=== PATIENT | female | born 1935 | race Caucasian/White ===

== ENCOUNTER 2016-11-27 13:02 | Inpatient (IN) | payer OTHER, BC ==
[~2016-11-27] VITALS: Ht 167.6 cm; Wt 88.2 kg
[~2016-11-27 13:02] MED LIST: AMLODIPINE BESY10 MG PO; ASPIRIN EC325 MG PO; CALCIUM 500 MG1 EACH PO; CALCIUM 600 +1 EAC9 PO; CELECOXIB200 MG PO; DIOVAN160 MG PO; DIOVAN320 MG PO; FLAGYL500 MG PO; FLAX OIL1000 MG PO; HYDROCODON-ACE1 EAC7 PO; IRON325 M1 PO; LOPRESSOR25 MG PO; LOPRESSOR50 MG PO; METRONIDAZOLE500 MG PO; NORCO 5/3251 TABLET PO; ONE DAILY FOR1 EAC1 PO; SENNA PLUS TAB1 EACH PO; TOPROL XL50 MG PO
[2016-11-27 13:32] LABS: MEAN PLAT.VOLUME 11.1 uM^3 (9.5-12.4); PLATELET COUNT 153 K/uL (156-360)
[2016-11-27 13:45] LABS: CHLORIDE 106 mEq/L (99-109); HEMATOCRIT 30.2 % (36.0-46.0); MCH 35.7 PG (29.0-34.0); MCHC 32.8 G/DL (30.0-36.0); POTASSIUM 4.9 mEq/L (3.7-5.4); RBC DIS.WIDTH-CV 17.6 % (11.8-14.6); RED BLOOD COUNT 2.77 M/uL (3.80-5.20); SODIUM 141 mEq/L (136-147)
[2016-11-27 13:46] LABS: WHITE BLOOD COUNT 60.8 K/uL (4.1-10.2)
[2016-11-27 13:47] LABS: GLUCOSE 140 mg/dL (70-99)
[2016-11-27 13:48] LABS: ANION GAP 11 MEQ/L (2-14)
[2016-11-27 13:51] LABS: GFR ESTIMATE (CALCULATED) 42 mL/min/
[2016-11-27 13:52] LABS: TROP-I INTERPRETATION NEGATIVE; TROPONIN-I < 0.01 ng/mL (0.0-0.30); UREA NITROGEN (BUN) 23 mg/dL (9-23)
[2016-11-27] MEDS ORDERED: NORVASC10 MG PO (16:26)
[2016-11-27 17:05] LABS: SAMPLE HEMOLYSIS CHECK 0; SAMPLE ICTERIC CHECK 0; SAMPLE LIPEMIA CHECK 0
[2016-11-27 17:10] LABS: LACTATE DEHYDROGENASE 429 IU/L (20-246)
[2016-11-27 17:33] LABS: ABS NEUTROPHIL COUNT 7.5; ANISOCYTOSIS 2+; ATYPICAL LYMPHOCYTE 11.9 %; BAND NEUTROPHILS 1.4 % (0-8.0); BASOPHILS 0.5 %; EOSINOPHIL ABS CT 0.3; EOSINOPHILS 0.5 % (0-5.0); INSTRUMENT ABS NEUTROPHIL CT 4.2 K/uL; LYMPHOCYTES 64.2 % (15.0-45.0); MACROCYTES 1+; MICROCYTOSIS 1+; OVALOCYTES 1+; PLAT.SUFFICIENCY ADEQUATE; POLYCHROMASIA 1+; SCHISTOCYTES 1+; SMUDGE CELLS 33.9; TEAR DROP CELLS 1+
[2016-11-27 23:18] LABS: D-DIMER ELISA 0.21 mg/L FEU (< 0.57); INTER. NORMALIZED RATIO 1.2; PROTHROMBIN TIME 11.9 (9.2-11.2); PTT 22.8 (25-32)
[2016-11-28 00:36] VITALS: BP 148/66
[2016-11-28 01:26] LABS: TROP-I INTERPRETATION NEGATIVE; TROPONIN-I < 0.01 ng/mL (0.0-0.30)
[2016-11-28 06:29] LABS: MEAN PLAT.VOLUME 11.2 uM^3 (9.5-12.4); PLATELET COUNT 113 K/uL (156-360)
[2016-11-28 06:37] LABS: HEMATOCRIT 27.8 % (36.0-46.0); MCH 36.1 PG (29.0-34.0); MCHC 33.1 G/DL (30.0-36.0); NRBC (%) 0.1 /100 WBC (0-0); RBC DIS.WIDTH-CV 18.2 % (11.8-14.6); RBC DIS.WIDTH-SD 71.4 % (39-53); RED BLOOD COUNT 2.55 M/uL (3.80-5.20)
[2016-11-28 06:41] LABS: WHITE BLOOD COUNT 49.1 K/uL (4.1-10.2)
[2016-11-28 06:53] LABS: ANION GAP 8 MEQ/L (2-14); CHLORIDE 107 MEQ/L (99-109); GFR ESTIMATE (CALCULATED) 51 mL/min/; SAMPLE HEMOLYSIS CHECK 0; SAMPLE ICTERIC CHECK 0; SAMPLE LIPEMIA CHECK 0; SODIUM 141 MEQ/L (136-147); UREA NITROGEN (BUN) 18 mg/dL (9-23)
[2016-11-28 06:54] LABS: GLUCOSE 102 mg/dL (70-99)
[2016-11-28 06:56] LABS: TROP-I INTERPRETATION NEGATIVE; TROPONIN-I 0.01 ng/mL (0.0-0.30)
[2016-11-28 07:49] VITALS: BP 138/63
[2016-11-28 08:39] LABS: ALKALINE PHOSPHATASE 72 IU/L (3-129); DIRECT BILIRUBIN 0.3 mg/dL (0.0-0.3); TOTAL BILIRUBIN 1.2 MG/DL (0.0-1.0)
[2016-11-28 10:42] LABS: ADD MIUA? YES; BILIRUBIN NEGATIVE; BLOOD SMALL; COLOR YELLOW ((YELLOW)); GLUCOSE (STRIP) NEGATIVE; KETONES NEGATIVE; LEUKOCYTES LARGE; NITRITE NEGATIVE; PROTEIN (STRIP) NEGATIVE; SPECIFIC GRAVITY 1.009 (1.000-1.030); UROBILINOGEN 0.2 MG/DL (0.2-1.0)
[2016-11-28 10:59] LABS: BACTERIA 2+ /HPF; EPITHELIAL CELLS RARE /HPF; MUCUS TRACE /LPF; RED BLOOD CELLS 0-5 /HPF (0-5); UCUL ADDED? YES; WHITE BLOOD CELLS TNTC /HPF (0-5); WHITE BLOOD CELLS CLUMP FEW /HPF (0-5)
[2016-11-28 11:17] VITALS: BP 137/64
[2016-11-28 14:09] LABS: AHBS INDEX 2.51; HBSG INDEX 0.24; HEPATITIS B SURFACE ANTIBODY Nonreactive
[2016-11-28 15:34] VITALS: BP 136/63
[2016-11-28 19:56] VITALS: BP 155/69
[2016-11-28 23:11] VITALS: BP 120/59
[2016-11-29 03:57] VITALS: BP 133/62
[2016-11-29 06:30] VITALS: BP 137/69
[2016-11-29 06:49] LABS: MCH 36.1 PG (29.0-34.0); MCHC 32.9 G/DL (30.0-36.0); MCV 109.8 FL (83-99); MEAN PLAT.VOLUME 11.3 uM^3 (9.5-12.4); NRBC (%) 0.1 /100 WBC (0-0); PLATELET COUNT 116 K/uL (156-360); RBC DIS.WIDTH-CV 17.9 % (11.8-14.6); RBC DIS.WIDTH-SD 70.4 % (39-53); RED BLOOD COUNT 2.55 M/uL (3.80-5.20)
[2016-11-29 06:52] LABS: WHITE BLOOD COUNT 50.8 K/uL (4.1-10.2)
[2016-11-29 07:06] LABS: ANION GAP 8 MEQ/L (2-14); CHLORIDE 106 MEQ/L (99-109); GFR ESTIMATE (CALCULATED) 51 mL/min/; GLUCOSE 97 mg/dL (70-99); POTASSIUM 4.1 MEQ/L (3.7-5.4); SAMPLE HEMOLYSIS CHECK 0; SAMPLE ICTERIC CHECK 0; SAMPLE LIPEMIA CHECK 0; SODIUM 141 MEQ/L (136-147); UREA NITROGEN (BUN) 18 mg/dL (9-23)
[2016-11-29 07:22] LABS: ABS NEUTROPHIL COUNT 8.8; ATYPICAL LYMPHOCYTE 2.8 %; BAND NEUTROPHILS 0.9 % (0-8.0); EOSINOPHIL ABS CT 0.5; EOSINOPHILS 0.9 % (0-5.0); INSTRUMENT ABS NEUTROPHIL CT 3.3 K/uL; LYMPHOCYTES 77.1 % (15.0-45.0); METAMYELOCYTES 0.9 %; SEG.NEUTROPHILS 16.5 % (46.0-76.0); SMUDGE CELLS 81.7
[2016-11-29 07:31] LABS: ANISOCYTOSIS 1+; MACROCYTES 1+; PLAT.SUFFICIENCY DECREASED
[2016-11-29 11:28] VITALS: BP 127/69
[2016-11-29 16:14] VITALS: BP 136/66
[2016-11-29 19:17] VITALS: BP 133/63
[2016-11-29 23:34] VITALS: BP 125/60
[2016-11-30 03:53] VITALS: BP 133/63
[2016-11-30 07:29] VITALS: BP 130/60
[2016-11-30 07:37] LABS: HEMATOCRIT 29.1 % (36.0-46.0); MCHC 32.6 G/DL (30.0-36.0); MCV 110.2 FL (83-99); NRBC (%) 0.1 /100 WBC (0-0); RBC DIS.WIDTH-CV 18.1 % (11.8-14.6); RBC DIS.WIDTH-SD 72.4 % (39-53); RED BLOOD COUNT 2.64 M/uL (3.80-5.20)
[2016-11-30 07:40] LABS: ANION GAP 7 MEQ/L (2-14); CHLORIDE 108 MEQ/L (99-109); GFR ESTIMATE (CALCULATED) 46 mL/min/; GLUCOSE 100 mg/dL (70-99); SAMPLE HEMOLYSIS CHECK 2; SAMPLE ICTERIC CHECK 0; SAMPLE LIPEMIA CHECK 0; SODIUM 143 MEQ/L (136-147); UREA NITROGEN (BUN) 16 mg/dL (9-23)
[2016-11-30 08:32] LABS: ABS NEUTROPHIL COUNT 7.4; ATYPICAL LYMPHOCYTE 1.9 %; EOSINOPHIL ABS CT 0; INSTRUMENT ABS NEUTROPHIL CT 3.2 K/uL; LYMPHOCYTES 74.5 % (15.0-45.0); MEAN PLAT.VOLUME 11.2 uM^3 (9.5-12.4); METAMYELOCYTES 0.9 %; NUCLEATED RBC'S 1.9; PLATELET COUNT 121 K/uL (156-360); SMUDGE CELLS 91.5
[2016-11-30 09:07] LABS: POTASSIUM 4.1 MEQ/L (3.7-5.4)
[2016-11-30 11:02] VITALS: BP 138/65
[2016-11-30 11:32] LABS: ANISOCYTOSIS 2+; MACROCYTES 1+; MICROCYTOSIS 1+; PLAT.SUFFICIENCY DECREASED
[2016-11-30] MEDS ORDERED: BACTRIM,SEPT1 TABLET PO (13:55)
[2016-11-30] MEDS ORDERED: CYANOCOBAL1000 MCG/2 PO (13:56)
[2016-12-01 11:26] LABS: POC NON-PRINT COM 1 ND
[2016-12-01 11:27] LABS: POC NON-PRINT COM 1 ND
== END 2016-11-30 16:10 | disposition home or self-care (01) | DRG 841 ==
LOC: EME 13:02 → EDOF 21:48 → 2EAST 21:48
PROVIDERS: Anesthesiology; Hospitalist; Internal Medicine
DX: C91.90 Lymphoid leukemia, unspecified not having achieved remission (principal); N39.0 Urinary tract infection, site not specified; E53.8 Deficiency of other specified B group vitamins; I10 Essential (primary) hypertension; R53.83 Other fatigue; D63.0 Anemia in neoplastic disease; D53.9 Nutritional anemia, unspecified; R73.9 Hyperglycemia, unspecified
CPT/HCPCS: 71020; 71260; 74177; 80048; 80076; 81003; 82272; 82607; 82746; 83615; 84443; 84484; 84550; 84999; 85007; 85025; 85027; 85379; 85610; 85730; 86706; 86860; 86870; 86880; 87040; 87077; 87086; 87186; 87340; 93005; 93306; 99281; 99285; J1650; J3420; J7030

== ENCOUNTER 2016-12-28 20:47 | Inpatient (IN) | payer OTHER, BC ==
[~2016-12-28] VITALS: Ht 167.6 cm; Wt 89.8 kg
[~2016-12-28 20:47] MED LIST changes: +BACTRIM,SEPT1 TABLET PO; +CYANOCOBAL1000 MCG/2 PO; +NORVASC10 MG PO
[2016-12-28 22:24] LABS: CHLORIDE 106 mEq/L (99-109); HEMATOCRIT 21.9 % (36.0-46.0); MCH 37.8 PG (29.0-34.0); MCHC 33.8 G/DL (30.0-36.0); MCV 111.7 FL (83-99); NRBC (%) 0.1 /100 WBC (0-0); POTASSIUM 4.3 mEq/L (3.7-5.4); RBC DIS.WIDTH-CV 18.6 % (11.8-14.6); RBC DIS.WIDTH-SD 70.8 % (39-53); SODIUM 139 mEq/L (136-147)
[2016-12-28 22:26] LABS: GLUCOSE 130 mg/dL (70-99); PLATELET COUNT 172 K/uL (156-360); RED BLOOD COUNT 1.96 M/uL (3.80-5.20); WHITE BLOOD COUNT 104.6 K/uL (4.1-10.2)
[2016-12-28 22:27] LABS: ANION GAP 10 MEQ/L (2-14)
[2016-12-28 22:30] LABS: GFR ESTIMATE (CALCULATED) 36 mL/min/; UREA NITROGEN (BUN) 28 mg/dL (9-23)
[2016-12-28 23:32] LABS: HEMATOLOGY COMMENT 1 SMEAR COMPATIBLE; PLAT.SUFFICIENCY ADEQUATE
[2016-12-29 00:01] LABS: INTER. NORMALIZED RATIO 1.1; PROTHROMBIN TIME 11.3 (9.2-11.2); PTT 25.3 (25-32)
[2016-12-29 00:05] LABS: TOTAL BILIRUBIN 3.5 mg/dL (0.0-1.0)
[2016-12-29 00:06] LABS: ALKALINE PHOSPHATASE 85 IU/L (3-129)
[2016-12-29 00:09] LABS: DIRECT BILIRUBIN 0.9 mg/dL (0.0-0.3)
[2016-12-29 00:10] LABS: LIPASE 26 U/L (1.0-51.0)
[2016-12-29 00:15] LABS: TROP-I INTERPRETATION NEGATIVE; TROPONIN-I < 0.01 ng/mL (0.0-0.30)
[2016-12-29 00:39] LABS: CREATINE KINASE 28 IU/L (1-294)
[2016-12-29 00:47] LABS: ADD MIUA? YES; BILIRUBIN NEGATIVE; BLOOD NEGATIVE; COLOR YELLOW ((YELLOW)); GLUCOSE (STRIP) NEGATIVE; KETONES NEGATIVE; LEUKOCYTES MODERATE; NITRITE NEGATIVE; PROTEIN (STRIP) NEGATIVE; SPECIFIC GRAVITY 1.019 (1.000-1.030)
[2016-12-29 00:47] LABS: INFLUENZA A VIRAL ANTIGEN NEGATIVE; INFLUENZA B VIRAL ANTIGEN NEGATIVE
[2016-12-29] MEDS ORDERED: VITAMIN B-12500 MC5 SL (00:49)
[2016-12-29 01:32] LABS: BACTERIA NONE SEEN /HPF; EPITHELIAL CELLS RARE /HPF; MUCUS TRACE /LPF; UCUL ADDED? NO; WHITE BLOOD CELLS 20-30 /HPF (0-5)
[2016-12-29 04:57] VITALS: BP 134/64
[2016-12-29 05:33] VITALS: BP 134/64
[2016-12-29 06:44] LABS: HEMATOCRIT 17.1 % (36.0-46.0); MCH 38.9 PG (29.0-34.0); MCHC 33.9 G/DL (30.0-36.0); MCV 114.8 FL (83-99); NRBC (%) 0.1 /100 WBC (0-0); RBC DIS.WIDTH-SD 75.4 % (39-53)
[2016-12-29 06:45] LABS: RED BLOOD COUNT 1.49 M/uL (3.80-5.20)
[2016-12-29 07:24] VITALS: BP 111/58
[2016-12-29 08:12] VITALS: BP 136/65
[2016-12-29 08:38] LABS: ABS NEUTROPHIL COUNT 9.6; ANISOCYTOSIS 2+; BAND NEUTROPHILS 0.9 % (0-8.0); BASOPHILS 0.5 %; EOSINOPHIL ABS CT 0; INSTRUMENT ABS NEUTROPHIL CT 4.7 K/uL; LYMPHOCYTES 82.8 % (15.0-45.0); MACROCYTES 1+; MEAN PLAT.VOLUME 10.8 uM^3 (9.5-12.4); METAMYELOCYTES 0.5 %; MICROCYTOSIS 1+; MYELOCYTES 1.4 %; PLAT.SUFFICIENCY DECREASED; PLATELET COUNT 136 K/uL (156-360); POLYCHROMASIA 1+; SMUDGE CELLS 73.7
[2016-12-29 15:05] VITALS: BP 113/61
[2016-12-29 22:52] VITALS: BP 123/56
[2016-12-30] VITALS (11 sets, daily range): BP systolic 108–181; BP diastolic 52–82
[2016-12-30 02:31] LABS: TROP-I INTERPRETATION NEGATIVE; TROPONIN-I < 0.01 ng/mL (0.0-0.30)
[2016-12-30 07:34] LABS: HEMATOCRIT 18.4 % (36.0-46.0); MCH 38.5 PG (29.0-34.0); MCHC 33.7 G/DL (30.0-36.0); MCV 114.3 FL (83-99); MEAN PLAT.VOLUME 10.8 uM^3 (9.5-12.4); NRBC (%) 0.1 /100 WBC (0-0); RBC DIS.WIDTH-CV 19.7 % (11.8-14.6); RBC DIS.WIDTH-SD 74.7 % (39-53); RED BLOOD COUNT 1.61 M/uL (3.80-5.20); WHITE BLOOD COUNT 110.2 K/uL (4.1-10.2)
[2016-12-30 07:35] LABS: PLATELET COUNT 179 K/uL (156-360)
[2016-12-30 07:59] LABS: ALKALINE PHOSPHATASE 88 IU/L (3-129); ANION GAP 10 MEQ/L (2-14); CHLORIDE 107 MEQ/L (99-109); GFR ESTIMATE (CALCULATED) 51 mL/min/; GLUCOSE 131 mg/dL (70-99); POTASSIUM 4.5 MEQ/L (3.7-5.4); SAMPLE HEMOLYSIS CHECK 0; SAMPLE ICTERIC CHECK 1; SAMPLE LIPEMIA CHECK 0; SODIUM 141 MEQ/L (136-147); TOTAL BILIRUBIN 3.4 MG/DL (0.0-1.0); UREA NITROGEN (BUN) 26 mg/dL (9-23)
[2016-12-30 18:03] LABS: HEMATOCRIT 23.7 % (36.0-46.0); MCH 35.1 PG (29.0-34.0); MCHC 33.8 G/DL (30.0-36.0); MEAN PLAT.VOLUME 10.4 uM^3 (9.5-12.4); NRBC (%) 0.2 /100 WBC (0-0); PLATELET COUNT 162 K/uL (156-360); RBC DIS.WIDTH-CV 21.4 % (11.8-14.6); RBC DIS.WIDTH-SD 71.7 % (39-53)
[2016-12-30 18:05] LABS: MCV 103.9 FL (83-99); RED BLOOD COUNT 2.28 M/uL (3.80-5.20); WHITE BLOOD COUNT 104.9 K/uL (4.1-10.2)
[2016-12-31 07:37] LABS: HEMATOCRIT 24.7 % (36.0-46.0); MCH 35.6 PG (29.0-34.0); MCV 104.7 FL (83-99); MEAN PLAT.VOLUME 11.1 uM^3 (9.5-12.4); NRBC (%) 0.2 /100 WBC (0-0); PLATELET COUNT 179 K/uL (156-360); RBC DIS.WIDTH-CV 22.1 % (11.8-14.6); RBC DIS.WIDTH-SD 73.5 % (39-53); RED BLOOD COUNT 2.36 M/uL (3.80-5.20)
[2016-12-31 07:42] LABS: WHITE BLOOD COUNT 104.3 K/uL (4.1-10.2)
[2016-12-31 07:47] LABS: ANION GAP 8 MEQ/L (2-14); CHLORIDE 106 MEQ/L (99-109); GFR ESTIMATE (CALCULATED) 51 mL/min/; GLUCOSE 107 mg/dL (70-99); SAMPLE HEMOLYSIS CHECK 0; SAMPLE ICTERIC CHECK 1; SAMPLE LIPEMIA CHECK 0; SODIUM 140 MEQ/L (136-147); UREA NITROGEN (BUN) 23 mg/dL (9-23)
[2016-12-31 08:27] VITALS: BP 130/62
[2016-12-31 09:40] LABS: ABS NEUTROPHIL COUNT 8.7; ANISOCYTOSIS 2+; BAND NEUTROPHILS 0.4 % (0-8.0); BASOPHILS 0.4 %; EOSINOPHIL ABS CT 0.5; EOSINOPHILS 0.5 % (0-5.0); INSTRUMENT ABS NEUTROPHIL CT 5.3 K/uL; MACROCYTES 1+; METAMYELOCYTES 0.9 %; MICROCYTOSIS 2+; PLAT.SUFFICIENCY ADEQUATE; POLYCHROMASIA 1+; SEG.NEUTROPHILS 7.9 % (46.0-76.0); SMUDGE CELLS 32.8; SPHEROCYTES 2+
[2016-12-31 15:00] VITALS: BP 136/64
[2016-12-31 23:23] VITALS: BP 125/59
[2017-01-01 06:52] LABS: HEMATOCRIT 21.8 % (36.0-46.0); MCH 35.8 PG (29.0-34.0); MCV 108.5 FL (83-99); MEAN PLAT.VOLUME 10.8 uM^3 (9.5-12.4); NRBC (%) 0.3 /100 WBC (0-0); PLATELET COUNT 174 K/uL (156-360); RBC DIS.WIDTH-CV 23.4 % (11.8-14.6); RBC DIS.WIDTH-SD 78.9 % (39-53); RED BLOOD COUNT 2.01 M/uL (3.80-5.20)
[2017-01-01 06:53] LABS: ANION GAP 8 MEQ/L (2-14); CHLORIDE 104 MEQ/L (99-109); GFR ESTIMATE (CALCULATED) 46 mL/min/; GLUCOSE 107 mg/dL (70-99); POTASSIUM 4.7 MEQ/L (3.7-5.4); SAMPLE HEMOLYSIS CHECK 0; SAMPLE ICTERIC CHECK 1; SAMPLE LIPEMIA CHECK 0; SODIUM 140 MEQ/L (136-147); UREA NITROGEN (BUN) 26 mg/dL (9-23); WHITE BLOOD COUNT 100.7 K/uL (4.1-10.2)
[2017-01-01 07:00] VITALS: BP 115/58
[2017-01-01 07:40] LABS: ABS NEUTROPHIL COUNT 9.7; ANISOCYTOSIS 2+; EOSINOPHIL ABS CT 0.9; EOSINOPHILS 0.9 % (0-5.0); INSTRUMENT ABS NEUTROPHIL CT 5.5 K/uL; LYMPHOCYTES 5.7 % (15.0-45.0); MICROCYTOSIS 2+; PLAT.SUFFICIENCY ADEQUATE; POIKILOCYTOSIS 1+; POLYCHROMASIA 1+; SEG.NEUTROPHILS 8.6 % (46.0-76.0); SMUDGE CELLS 26.7; STOMATOCYTES 1+; TEAR DROP CELLS 1+
[2017-01-01 15:37] VITALS: BP 129/58
[2017-01-01 23:34] VITALS: BP 122/59
[2017-01-02] VITALS (10 sets, daily range): BP systolic 109–134; BP diastolic 53–63
[2017-01-02 06:45] LABS: HEMATOCRIT 19.5 % (36.0-46.0); MCH 40.4 PG (29.0-34.0); MCHC 35.4 G/DL (30.0-36.0); NRBC (%) 0.3 /100 WBC (0-0); PLATELET COUNT 169 K/uL (156-360); RBC DIS.WIDTH-CV 28.3 % (11.8-14.6); RED BLOOD COUNT 1.71 M/uL (3.80-5.20)
[2017-01-02 06:48] LABS: WHITE BLOOD COUNT 108.9 K/uL (4.1-10.2)
[2017-01-02 07:52] LABS: ABS NEUTROPHIL COUNT 5.6; ANISOCYTOSIS 2+; ATYPICAL LYMPHOCYTE 2.6 %; EOSINOPHIL ABS CT 0; INSTRUMENT ABS NEUTROPHIL CT 5.6 K/uL; MACROCYTES 2+; MICROCYTOSIS 2+; MYELOCYTES 0.4 %; NUCLEATED RBC'S 0.4; PLAT.SUFFICIENCY ADEQUATE; POIKILOCYTOSIS 1+; POLYCHROMASIA 3+; SEG.NEUTROPHILS 5.1 % (46.0-76.0); SMUDGE CELLS 39.3
[2017-01-02 07:53] LABS: LYMPHOCYTES 89.8 % (15.0-45.0)
[2017-01-03 00:49] LABS: HEMATOCRIT 26.5 % (36.0-46.0); MCV 101.9 FL (83-99)
[2017-01-03 06:57] LABS: MCH 35.4 PG (29.0-34.0); MCHC 33.3 G/DL (30.0-36.0); MEAN PLAT.VOLUME 10.9 uM^3 (9.5-12.4); NRBC (%) 0.3 /100 WBC (0-0); PLATELET COUNT 149 K/uL (156-360); RBC DIS.WIDTH-CV 25.5 % (11.8-14.6); RBC DIS.WIDTH-SD 75.9 % (39-53)
[2017-01-03 07:03] LABS: ANION GAP 13 MEQ/L (2-14); CHLORIDE 106 MEQ/L (99-109); GFR ESTIMATE (CALCULATED) 42 mL/min/; GLUCOSE 94 mg/dL (70-99); POTASSIUM 4.3 MEQ/L (3.7-5.4); SAMPLE HEMOLYSIS CHECK 0; SAMPLE ICTERIC CHECK 1; SAMPLE LIPEMIA CHECK 0; SODIUM 138 MEQ/L (136-147); UREA NITROGEN (BUN) 26 mg/dL (9-23)
[2017-01-03 07:30] VITALS: BP 128/62
[2017-01-03 07:35] LABS: MCV 106.3 FL (83-99); RED BLOOD COUNT 2.54 M/uL (3.80-5.20); WHITE BLOOD COUNT 91.8 K/uL (4.1-10.2)
[2017-01-03 16:49] VITALS: BP 120/57
[2017-01-03 22:59] VITALS: BP 115/55
[2017-01-04 06:13] VITALS: BP 138/63
[2017-01-04 06:50] VITALS: BP 131/59
[2017-01-04 10:07] LABS: HEMATOCRIT 24.7 % (36.0-46.0); MCH 37.1 PG (29.0-34.0); MCHC 34.4 G/DL (30.0-36.0); MCV 107.9 FL (83-99); NRBC (%) 0.3 /100 WBC (0-0); PLATELET COUNT 172 K/uL (156-360); RBC DIS.WIDTH-CV 26.5 % (11.8-14.6); RBC DIS.WIDTH-SD 91.3 % (39-53); RED BLOOD COUNT 2.29 M/uL (3.80-5.20)
[2017-01-04 10:18] LABS: WHITE BLOOD COUNT 88.3 K/uL (4.1-10.2)
[2017-01-04 10:21] LABS: ABS NEUTROPHIL COUNT 8.8; BAND NEUTROPHILS 0.5 % (0-8.0); EOSINOPHIL ABS CT 0.4; EOSINOPHILS 0.5 % (0-5.0); INSTRUMENT ABS NEUTROPHIL CT 5.7 K/uL; METAMYELOCYTES 0.5 %; NUCLEATED RBC'S 1.5; SEG.NEUTROPHILS 9.5 % (46.0-76.0); SMUDGE CELLS 31.5
[2017-01-04 16:44] VITALS: BP 134/62
[2017-01-05 00:14] VITALS: BP 141/64
[2017-01-05 07:04] VITALS: BP 139/84
[2017-01-05 07:52] LABS: HEMATOCRIT 21.5 % (36.0-46.0); MCH 36.5 PG (29.0-34.0); MCHC 33.5 G/DL (30.0-36.0); MCV 109.1 FL (83-99); MEAN PLAT.VOLUME 10.9 uM^3 (9.5-12.4); NRBC (%) 0.2 /100 WBC (0-0); PLATELET COUNT 150 K/uL (156-360); RBC DIS.WIDTH-CV 27.5 % (11.8-14.6); RBC DIS.WIDTH-SD 98.7 % (39-53); RED BLOOD COUNT 1.97 M/uL (3.80-5.20)
[2017-01-05 07:55] LABS: WHITE BLOOD COUNT 74.5 K/uL (4.1-10.2)
[2017-01-05 08:26] LABS: ALKALINE PHOSPHATASE 86 IU/L (3-129); ANION GAP 9 MEQ/L (2-14); CHLORIDE 109 MEQ/L (99-109); GFR ESTIMATE (CALCULATED) 51 mL/min/; GLUCOSE 107 mg/dL (70-99); POTASSIUM 4.5 MEQ/L (3.7-5.4); SAMPLE HEMOLYSIS CHECK 0; SAMPLE ICTERIC CHECK 1; SAMPLE LIPEMIA CHECK 0; SODIUM 144 MEQ/L (136-147); TOTAL BILIRUBIN 3.7 MG/DL (0.0-1.0); UREA NITROGEN (BUN) 21 mg/dL (9-23); URIC ACID 3.9 mg/dL (3.1-9.2)
[2017-01-05 09:32] LABS: ABS NEUTROPHIL COUNT 9.7; ANISOCYTOSIS 2+; BAND NEUTROPHILS 0.5 % (0-8.0); BASOPHILS 0.5 %; EOSINOPHIL ABS CT 0; INSTRUMENT ABS NEUTROPHIL CT 4.3 K/uL; MACROCYTES 2+; METAMYELOCYTES 1.5 %; SEG.NEUTROPHILS 12.5 % (46.0-76.0); SPHEROCYTES 1+
[2017-01-05 15:04] VITALS: BP 122/58
[2017-01-05 23:12] VITALS: BP 125/58
[2017-01-06] VITALS (7 sets, daily range): BP systolic 108–146; BP diastolic 55–65
[2017-01-06 07:29] LABS: HEMATOCRIT 19.7 % (36.0-46.0); MCH 37.9 PG (29.0-34.0); MCHC 33.5 G/DL (30.0-36.0); MEAN PLAT.VOLUME 10.8 uM^3 (9.5-12.4); NRBC (%) 0.1 /100 WBC (0-0); PLATELET COUNT 135 K/uL (156-360); RBC DIS.WIDTH-CV 28.7 % (11.8-14.6); RBC DIS.WIDTH-SD 107.6 % (39-53); RED BLOOD COUNT 1.74 M/uL (3.80-5.20)
[2017-01-06 07:31] LABS: MCV 113.2 FL (83-99); WHITE BLOOD COUNT 76.9 K/uL (4.1-10.2)
[2017-01-06 08:16] LABS: ABS NEUTROPHIL COUNT 9.4; ANISOCYTOSIS 3+; EOSINOPHIL ABS CT 0; INSTRUMENT ABS NEUTROPHIL CT 3.8 K/uL; LYMPHOCYTES 1.5 % (15.0-45.0); MACROCYTES 1+; MICROCYTOSIS 3+; PLAT.SUFFICIENCY DECREASED; POLYCHROMASIA 1+; SEG.NEUTROPHILS 10.2 % (46.0-76.0); SMUDGE CELLS 99.5; STOMATOCYTES 1+
[2017-01-06] MEDS ORDERED: HYDREA500 MG PO (14:48)
[2017-01-06] MEDS ORDERED: ALLOPURINOL300 MG PO (14:48)
[2017-01-06] MEDS ORDERED: ALPRAZOLAM0.25 M2 PO (14:50)
[2017-01-06 16:13] LABS: HEMATOCRIT 27.3 % (36.0-46.0)
[2017-01-06 16:23] LABS: MCV 101.5 FL (83-99)
[2017-01-13] MEDS ORDERED: LEUKERAN2 MG PO (08:40)
[2017-01-13] MEDS ORDERED: GAZYVA1000 MG/40 IV (08:41)
== END 2017-01-06 16:54 | disposition home health service (06) | DRG 841 ==
LOC: EME 20:47 → 5EAST 12-29 03:24 → EDOF 12-29 03:24 → 5EAST 12-29 04:45
PROVIDERS: Anesthesiology; Emergency Medicine; Hospitalist; Internal Medicine
PROC: 30233N1 Transfusion of Nonautologous Red Blood Cells into Peripheral Vein, Percutaneous Approach (ICD-10-PCS; principal; 2016-12-29)
DX: C91.Z0 Other lymphoid leukemia not having achieved remission (principal); N17.9 Acute kidney failure, unspecified; N30.00 Acute cystitis without hematuria; R17 Unspecified jaundice; F05 Delirium due to known physiological condition; D63.0 Anemia in neoplastic disease; C91.10 Chronic lymphocytic leukemia of B-cell type not having achieved remission; I10 Essential (primary) hypertension; F41.9 Anxiety disorder, unspecified; Z16.31 Resistance to antiparasitic drug(s); Z96.653 Presence of artificial knee joint, bilateral; E66.9 Obesity, unspecified; J84.10 Pulmonary fibrosis, unspecified; H53.8 Other visual disturbances; R53.82 Chronic fatigue, unspecified; D64.9 Anemia, unspecified; D51.3 Other dietary vitamin B12 deficiency anemia; E11.9 Type 2 diabetes mellitus without complications; Z68.31 Body mass index [BMI] 31.0-31.9, adult; Z87.440 Personal history of urinary (tract) infections; Z80.7 Family history of other malignant neoplasms of lymphoid, hematopoietic and related tissues; Z82.49 Family history of ischemic heart disease and other diseases of the circulatory system
CPT/HCPCS: 71020; 80048; 80053; 80076; 81003; 82550; 82948; 83605; 83690; 83880; 84484; 84550; 85014; 85018; 85025; 85027; 85610; 85730; 86860; 86860 90; 86870; 86880; 86880 90; 86885 90; 86900; 86900 90; 86901; 86901 90; 86904 90; 86905 90; 86906 90; 86920; 86970 90; 86971 90; 86978 90; 87040; 87502; 87651 90; 93005; 99281; 99285; J0696; J2270; J7030; J7050; P9016; S0028

== ENCOUNTER 2017-01-13 11:41 | Inpatient (IN) | payer OTHER, BC ==
[~2017-01-13] VITALS: Ht 168.9 cm; Wt 87.4 kg
[~2017-01-13 11:41] MED LIST changes: +ALLOPURINOL300 MG PO; +ALPRAZOLAM0.25 M2 PO; +GAZYVA1000 MG/40 IV; +HYDREA500 MG PO; +LEUKERAN2 MG PO; +VITAMIN B-12500 MC5 SL
[2017-01-13 12:13] LABS: HEMATOCRIT 23.5 % (36.0-46.0); MCH 35.2 PG (29.0-34.0); MCHC 34.5 G/DL (30.0-36.0); MEAN PLAT.VOLUME 11.3 uM^3 (9.5-12.4); NRBC (%) 0.5 /100 WBC (0-0); RBC DIS.WIDTH-CV 28.9 % (11.8-14.6)
[2017-01-13 12:14] LABS: MCV 102.2 FL (83-99); PLATELET COUNT 130 K/uL (156-360); WHITE BLOOD COUNT 42.5 K/uL (4.1-10.2)
[2017-01-13 12:16] LABS: INTER. NORMALIZED RATIO 1.2; PROTHROMBIN TIME 11.9 (9.2-11.2)
[2017-01-13 12:17] LABS: CHLORIDE 105 mEq/L (99-109); POTASSIUM 4.4 mEq/L (3.7-5.4); SODIUM 137 mEq/L (136-147)
[2017-01-13 12:19] LABS: GLUCOSE 227 mg/dL (70-99)
[2017-01-13 12:20] LABS: ANION GAP 12 MEQ/L (2-14)
[2017-01-13 12:21] LABS: TOTAL BILIRUBIN 2.3 mg/dL (0.0-1.0)
[2017-01-13 12:23] LABS: ALKALINE PHOSPHATASE 72 IU/L (3-129); GFR ESTIMATE (CALCULATED) 51 mL/min/
[2017-01-13 12:24] LABS: UREA NITROGEN (BUN) 20 mg/dL (9-23)
[2017-01-13 13:33] LABS: ABS NEUTROPHIL COUNT 14.7; ANISOCYTOSIS 3+; BAND NEUTROPHILS 2.4 % (0-8.0); BASOPHILS 1.9 %; EOSINOPHIL ABS CT 0.4; HYPOCHROMASIA 1+; INSTRUMENT ABS NEUTROPHIL CT 5.4 K/uL; MACROCYTES 1+; MICROCYTOSIS 2+; MYELOCYTES 0.5 %; PLAT.SUFFICIENCY DECREASED; POLYCHROMASIA 1+; SEG.NEUTROPHILS 32.2 % (46.0-76.0); SMUDGE CELLS 145.9; SPHEROCYTES 1+
[2017-01-13] MEDS ORDERED: COMPAZINE10 MG PO (14:21)
[2017-01-13] MEDS ORDERED: ZOVIRAX400 MG PO (14:21)
[2017-01-13] MEDS ORDERED: IMODIUM A-D2 M2 PO (14:22)
[2017-01-13] MEDS ORDERED: ADVIL200 MG PO (14:22)
[2017-01-13 16:40] LABS: TROP-I INTERPRETATION NEGATIVE; TROPONIN-I < 0.01 ng/mL (0.0-0.30)
[2017-01-13 18:37] LABS: ADD MIUA? YES; BILIRUBIN NEGATIVE; BLOOD NEGATIVE; COLOR YELLOW ((YELLOW)); GLUCOSE (STRIP) NEGATIVE; KETONES 5; LEUKOCYTES SMALL; NITRITE NEGATIVE; PROTEIN (STRIP) NEGATIVE; SPECIFIC GRAVITY 1.015 (1.000-1.030); UROBILINOGEN 0.2 MG/DL (0.2-1.0)
[2017-01-13 18:47] LABS: BACTERIA NONE SEEN /HPF; EPITHELIAL CELLS RARE /HPF; MUCUS TRACE /LPF; RED BLOOD CELLS 0-5 /HPF (0-5); UCUL ADDED? NO
[2017-01-13 20:45] VITALS: BP 108/55
[2017-01-13 23:33] LABS: TROP-I INTERPRETATION NEGATIVE; TROPONIN-I < 0.01 ng/mL (0.0-0.30)
[2017-01-14] VITALS (7 sets, daily range): BP systolic 92–128; BP diastolic 53–59
[2017-01-14 06:57] LABS: TROP-I INTERPRETATION NEGATIVE; TROPONIN-I < 0.01 ng/mL (0.0-0.30)
[2017-01-14 07:36] LABS: HEMATOCRIT 25.8 % (36.0-46.0); MCH 35.4 PG (29.0-34.0); MCHC 33.3 G/DL (30.0-36.0); MEAN PLAT.VOLUME 11.1 uM^3 (9.5-12.4); NRBC (%) 0.6 /100 WBC (0-0); PLATELET COUNT 130 K/uL (156-360); RBC DIS.WIDTH-CV 31.3 % (11.8-14.6); RED BLOOD COUNT 2.43 M/uL (3.80-5.20); WHITE BLOOD COUNT 27.8 K/uL (4.1-10.2)
[2017-01-14 07:42] LABS: MCV 106.2 FL (83-99)
[2017-01-14 10:26] LABS: C DIFF TOXIN NEGATIVE (NEGATIVE); PROBE CHECK PASS; SPECIMEN PROCESSING CONTROL PASS
[2017-01-14 16:44] LABS: INTERNAL CONTROL VALID? YES
[2017-01-15 03:28] VITALS: BP 114/56
[2017-01-15 07:14] LABS: INTER. NORMALIZED RATIO 1.2; PROTHROMBIN TIME 12.2 (9.2-11.2)
[2017-01-15 07:20] VITALS: BP 123/56
[2017-01-15 07:32] LABS: ANION GAP 5 MEQ/L (2-14); CHLORIDE 109 MEQ/L (99-109); GFR ESTIMATE (CALCULATED) > 59 mL/min/; POTASSIUM 4.2 MEQ/L (3.7-5.4); SAMPLE HEMOLYSIS CHECK 0; SAMPLE ICTERIC CHECK 0; SAMPLE LIPEMIA CHECK 0; SODIUM 138 MEQ/L (136-147); UREA NITROGEN (BUN) 18 mg/dL (9-23)
[2017-01-15 07:33] LABS: GLUCOSE 120 mg/dL (70-99)
[2017-01-15 07:39] LABS: HEMATOCRIT 22.4 % (36.0-46.0); MCH 37.4 PG (29.0-34.0); MCHC 33.9 G/DL (30.0-36.0); MEAN PLAT.VOLUME 11.4 uM^3 (9.5-12.4); NRBC (%) 0.3 /100 WBC (0-0); PLATELET COUNT 109 K/uL (156-360); RBC DIS.WIDTH-CV 31.9 % (11.8-14.6); RBC DIS.WIDTH-SD 115.3 % (39-53); RED BLOOD COUNT 2.03 M/uL (3.80-5.20); WHITE BLOOD COUNT 17.1 K/uL (4.1-10.2)
[2017-01-15 07:41] LABS: MCV 110.3 FL (83-99)
[2017-01-15 10:25] LABS: HEMATOCRIT 23.3 % (36.0-46.0); MCH 36.3 PG (29.0-34.0); MCHC 33.5 G/DL (30.0-36.0); MCV 108.4 FL (83-99); MEAN PLAT.VOLUME 10.6 uM^3 (9.5-12.4); NRBC (%) 0.2 /100 WBC (0-0); PLATELET COUNT 115 K/uL (156-360); RBC DIS.WIDTH-CV 31.8 % (11.8-14.6); RBC DIS.WIDTH-SD 114.4 % (39-53); RED BLOOD COUNT 2.15 M/uL (3.80-5.20); WHITE BLOOD COUNT 16.9 K/uL (4.1-10.2)
[2017-01-15 10:28] VITALS: BP 121/58
[2017-01-15 16:09] VITALS: BP 133/61
[2017-01-15 20:00] VITALS: BP 129/57
[2017-01-16] VITALS (14 sets, daily range): BP systolic 119–147; BP diastolic 56–69
[2017-01-16 09:02] LABS: HEMATOCRIT 21.6 % (36.0-46.0); MCHC 32.9 G/DL (30.0-36.0); MCV 109.6 FL (83-99); MEAN PLAT.VOLUME 10.6 uM^3 (9.5-12.4); NRBC (%) 0.2 /100 WBC (0-0); PLATELET COUNT 116 K/uL (156-360); RED BLOOD COUNT 1.97 M/uL (3.80-5.20); WHITE BLOOD COUNT 10.8 K/uL (4.1-10.2)
[2017-01-16 10:32] LABS: ABS NEUTROPHIL COUNT 4.3; ANISOCYTOSIS 3+; BAND NEUTROPHILS 8.1 % (0-8.0); EOSINOPHIL ABS CT 0; HEMATOLOGY COMMENT 1 SN; HYPOCHROMASIA 1+; INSTRUMENT ABS NEUTROPHIL CT 2.5 K/uL; MACROCYTES 2+; MICROCYTOSIS 2+; PLAT.SUFFICIENCY DECREASED; POLYCHROMASIA 1+; SEG.NEUTROPHILS 31.3 % (46.0-76.0); SMUDGE CELLS 66.7; SPHEROCYTES 2+; TEAR DROP CELLS 1+
[2017-01-17 00:18] VITALS: BP 131/60
[2017-01-17 08:31] VITALS: BP 141/65
[2017-01-17 08:36] LABS: HEMATOCRIT 28.1 % (36.0-46.0); MCH 34.6 PG (29.0-34.0); MCHC 32.7 G/DL (30.0-36.0); MCV 105.6 FL (83-99); MEAN PLAT.VOLUME 10.3 uM^3 (9.5-12.4); NRBC (%) 0.2 /100 WBC (0-0); PLATELET COUNT 151 K/uL (156-360); RBC DIS.WIDTH-CV 30.4 % (11.8-14.6); RBC DIS.WIDTH-SD 106.1 % (39-53); RED BLOOD COUNT 2.66 M/uL (3.80-5.20); WHITE BLOOD COUNT 25.5 K/uL (4.1-10.2)
[2017-01-17] MEDS ORDERED: PANTOPRAZOLE SO40 MG PO (09:57)
[2017-01-17] MEDS ORDERED: BACTRIM,SEPT1 TABLET PO (10:03)
== END 2017-01-17 13:59 | disposition home or self-care (01) | DRG 315 ==
LOC: EME 11:41 → EDOF 15:46 → 5WEST 20:33 → 5EAST 01-14 12:41 → 5WEST 01-14 12:41 → 5EAST 01-14 18:19
PROVIDERS: Anesthesiology; Emergency Medicine; Hospitalist; Internal Medicine; Internal Medicine Gastroenterology; Nurse Practitioner Adult Health
PROC: 0DB68ZX Excision of Stomach, Via Natural or Artificial Opening Endoscopic, Diagnostic (ICD-10-PCS; principal; 2017-01-15)
DX: I95.9 Hypotension, unspecified (principal); K29.70 Gastritis, unspecified, without bleeding; C85.90 Non-Hodgkin lymphoma, unspecified, unspecified site; C91.10 Chronic lymphocytic leukemia of B-cell type not having achieved remission; R10.30 Lower abdominal pain, unspecified; Y92.238 Other place in hospital as the place of occurrence of the external cause; I10 Essential (primary) hypertension; K21.9 Gastro-esophageal reflux disease without esophagitis; R53.1 Weakness; E11.9 Type 2 diabetes mellitus without complications; D53.9 Nutritional anemia, unspecified; R19.7 Diarrhea, unspecified; K44.9 Diaphragmatic hernia without obstruction or gangrene; K92.1 Melena; E53.8 Deficiency of other specified B group vitamins; F41.9 Anxiety disorder, unspecified; Z96.653 Presence of artificial knee joint, bilateral; R61 Generalized hyperhidrosis; M54.9 Dorsalgia, unspecified; Z92.21 Personal history of antineoplastic chemotherapy; Z79.1 Long term (current) use of non-steroidal anti-inflammatories (NSAID)
CPT/HCPCS: 80053; 80069; 81003; 82272; 84484; 85025; 85027; 85610; 86870; 86880 90; 86885 90; 86900; 86900 90; 86901; 86901 90; 86906 90; 86920; 86971 90; 86978 90; 87040; 87493; 88305; 88342 TC; 93005; 99281; 99285; G0378; G8978 GP CI; G8979 GP CH; G8987 GO CI; G8988 GO CH; J1200; J2270; J2405; J2930; J7030; P9016

== ENCOUNTER 2017-01-28 17:52 | Emergency (ER) | payer OTHER, BC ==
[~2017-01-28] VITALS: Ht 167.6 cm; Wt 84.6 kg
[~2017-01-28 17:52] MED LIST changes: +ADVIL200 MG PO; +COMPAZINE10 MG PO; +IMODIUM A-D2 M2 PO; +PANTOPRAZOLE SO40 MG PO; +ZOVIRAX400 MG PO
[2017-01-28 18:47] LABS: HEMATOCRIT 28.9 % (36.0-46.0); MCH 36.8 PG (29.0-34.0); MCHC 33.2 G/DL (30.0-36.0); MCV 110.7 FL (83-99); MEAN PLAT.VOLUME 10.4 uM^3 (9.5-12.4); PLATELET COUNT 202 K/uL (156-360); RED BLOOD COUNT 2.61 M/uL (3.80-5.20)
[2017-01-28 18:55] LABS: CHLORIDE 101 mEq/L (99-109); POTASSIUM 4.5 mEq/L (3.7-5.4); SODIUM 134 mEq/L (136-147)
[2017-01-28 18:57] LABS: GLUCOSE 126 mg/dL (70-99)
[2017-01-28 18:58] LABS: ANION GAP 9 MEQ/L (2-14)
[2017-01-28 18:59] LABS: TOTAL BILIRUBIN 1.9 mg/dL (0.0-1.0)
[2017-01-28 19:00] LABS: ALKALINE PHOSPHATASE 66 IU/L (3-129)
[2017-01-28 19:01] LABS: GFR ESTIMATE (CALCULATED) 42 mL/min/
[2017-01-28 19:02] LABS: UREA NITROGEN (BUN) 15 mg/dL (9-23)
[2017-01-28 19:11] LABS: ADD MIUA? NO; BILIRUBIN NEGATIVE; BLOOD NEGATIVE; COLOR YELLOW ((YELLOW)); GLUCOSE (STRIP) NEGATIVE; KETONES NEGATIVE; LEUKOCYTES NEGATIVE; NITRITE NEGATIVE; PROTEIN (STRIP) NEGATIVE; SPECIFIC GRAVITY 1.011 (1.000-1.030); UCUL ADDED? NO; UROBILINOGEN 0.2 MG/DL (0.2-1.0)
[2017-01-28 19:21] LABS: IMMATURE GRANULOCYTE (%) 4.1 % (0.0-0.7); IMMATURE GRANULOCYTE COUNT 0.2 K/uL; INSTRUMENT ABS NEUTROPHIL CT 2.7 K/uL; LYMPHOCYTE COUNT 0.8 K/uL (1.0-2.8); MONOCYTE (%) 9.5 % (3-12); MONOCYTE COUNT 0.4 K/uL (0-0.8); NEUTROPHIL (%) 66.2 % (45-76); NEUTROPHIL COUNT 2.7 K/uL (1.8-6.4)
[2017-01-28 20:53] VITALS: BP 134/69
== END 2017-01-28 20:53 | disposition home or self-care (01) ==
LOC: EME 17:52
DX: R50.9 Fever, unspecified (principal); I10 Essential (primary) hypertension; Z87.440 Personal history of urinary (tract) infections
CPT/HCPCS: 71020; 80053; 81003; 83605; 85025; 85027; 87040; 99281; 99283

== ENCOUNTER 2017-12-22 06:05 | Emergency (ER) | payer OTHER, BC ==
[~2017-12-22] VITALS: Ht 167.6 cm; Wt 91.8 kg
[2017-12-22 06:36] LABS: HEMATOCRIT 43.9 % (36.0-46.0); HEMOGLOBIN 15.1 G/DL (11.9-15.5); MCH 32.1 PG (29.0-34.0); MCHC 34.4 G/DL (30.0-36.0); MCV 93.2 FL (83-99); PLATELET COUNT 130 K/uL (156-360); RBC DIS.WIDTH-CV 13.2 % (11.8-14.6); RBC DIS.WIDTH-SD 44.9 % (39-53); RED BLOOD COUNT 4.71 M/uL (3.80-5.20); WHITE BLOOD COUNT 3.4 K/uL (4.1-10.2)
[2017-12-22 06:48] LABS: CHLORIDE 104 mEq/L (99-109); POTASSIUM 4.4 mEq/L (3.7-5.4); SODIUM 139 mEq/L (136-147)
[2017-12-22 06:50] LABS: GLUCOSE 119 mg/dL (70-99)
[2017-12-22 06:54] LABS: GFR ESTIMATE (CALCULATED) 57 mL/min/
[2017-12-22 06:55] LABS: UREA NITROGEN (BUN) 17 mg/dL (9-23)
[2017-12-22 07:27] LABS: ERTH.SED.RATE 1 MM/HR (0-30)
[2017-12-22 07:31] LABS: C-REACTIVE PROTEIN 1.4 MG/L (0-10)
[2017-12-22] MEDS ORDERED: ULTRAM50 MG PO (08:48)
[2017-12-22 09:18] VITALS: BP 149/76
== END 2017-12-22 09:20 | disposition home or self-care (01) ==
LOC: EME 06:05
PROVIDERS: Nurse Practitioner Family
DX: R51 Headache (principal); I10 Essential (primary) hypertension
CPT/HCPCS: 70450; 80048; 85027; 85651; 86140; 99281; 99285; J1200; J1885; J2765; J7030